=== PATIENT | male | born 1965 | race Caucasian/White ===

== ENCOUNTER 2020-03-14 12:42 | Outpatient (CLI) | payer OTHER, SELFPAY ==
--- NOTE | ~2020-03-14 | CT_ITS ---
EXAMINATION:CT chest w con DATE: 03/14/2020 13:12 INDICATION: Fibrosis of lung. TECHNIQUE: Computed tomography (CT) of the chest was performed with 75 mL Omnipaque 350 intravenous c ontrast. Automated exposure control and iterative reconstruction technique were employed. The dose-le ngth product (DLP) was 839.74 mGy-cm. COMPARISON: None. FINDINGS: The lungs demonstrate minimal atelectasis on the right. A calcified right lung nodule and c alcified right hilar lymph nodes are consistent with old granulomatous disease. No bronchiectasis or honeycombing. No pleural effusion. The heart size is normal. No pericardial effusion. There is a 4 mm stone in right kidney. There is mild bilateral gynecomastia. There is mild thoracic spondylosis. IMPRESSION: 1. No evidence of chronic interstitial lung disease. Reviewed, dictated and finalized at location A. UP SALES ADVISOR
== END 2020-03-14 12:43 | disposition home or self-care (01) ==
PROVIDERS: PCP Family Medicine; Visit Provider Family Medicine
DX: J84.10 Pulmonary fibrosis, unspecified (principal); N20.0 Calculus of kidney; N62 Hypertrophy of breast; M47.814 Spondylosis without myelopathy or radiculopathy, thoracic region
CPT/HCPCS: 71260; Q9967

== ENCOUNTER 2024-03-24 13:47 | Outpatient (CLI) | payer BC, SELFPAY ==
--- NOTE | ~2024-03-24 | XR_ITS ---
XR foot LT standing 2V Ordering provider: Kayla Lyon, PAC History: . M79.292 - Pain in left foot, NKI . Comparison: None. FINDINGS: BONES: No acute fracture or dislocation. Calcaneus spur. JOINT SPACES: Osteoarthritic changes of the first metatarsophalangeal joint.. No tarsal coalition. SOFT TISSUES: Normal. IMPRESSION: No definite acute osseous abnormality left foot. Osteoarthritic changes of the first metatarsophalangeal joint. Reviewed, dictated and finalized at location A. ICAL ASSOCIATE
== END 2024-03-24 13:48 | disposition home or self-care (01) ==
PROVIDERS: PCP Family Medicine; Visit Provider Physician Assistant Medical
DX: M19.09 Primary osteoarthritis, other specified site (principal)
CPT/HCPCS: 73620

== ENCOUNTER 2024-06-23 00:20 | Day surgery (SDC) | payer BC, SELFPAY ==
[2024-06-15 12:50] VITALS: BMI 35.5
--- OUTSIDE RECORDS SUMMARY | 2024-06-23 00:22 | XMS_ITS | Clinical Summary ---
Author Organization [facility] Address [facility] [place] [address] Care Team Providers Care Hog Raiser Name Role Phone Mahamed Lewis MD Primary Care Provider [phone] Allergies No known active allergies Medications simvastatin 20 MG tablet Take 20 mg by mouth nightly at bedtime. Active psyllium 51.7 % packet Take 1 packet by mouth daily. Active Krill Oil 500 MG Cap Take 500 mg by mouth daily. Active Multiple Vitamins-Minera ls (ONE-A-DAY MENS 50+) Tab 07/13/2018 Activ e Cholecalciferol ([facility] D3) 125 MCG (5000 UT) Cap 07/14/2019 Active Active Problems Problem Noted Date Diagnosed Date Syncope 09/21/2019 Family History Medical History Relation Comments Diabetes Maternal Grandfather Diabetes Maternal Grandmother Diabetes Paternal Grandmother Relation Status Comments Maternal Grandfather Maternal Grandmother Paternal Grandmother Social History Tobacco Use Types Packs/Day Years Used Date Smoking Tobacco: Never Smokeless Tobacco: Never Tobacco Cessation:Counseling Given: No Alcohol Use Standard Drinks/Week Comments Not Currently 0 (1 standard drink = 0.6 oz pur e alcohol) occasional drinker Humiliation, Afraid, Rape, and Kick questionnair e Answer Date Recorded Fear of Current or Ex-Partner Patient declined 0 09/22/2019 Emotionally Abused Patient declined 09/22/2019 Physically Abused Patient declined 09/22/2019 Sexually Abused Patient declined 09/22/2019 Social Connection and Isolation Panel [NHANES] A nswer Date Recorded Frequency of Communication with Friends and Fami ly Not on file 09/22/2019 Frequency of Social Gatherings with Friends and Family Patient declined 09/22/2019 Attends Jewish Services Patient declined 09/12 Active Member of Clubs or Organizations Patient declined 09/22/2019 Attends Club or Organization Meetings Patient de clined 09/22/2019 Marital Status Patient declined 09/22/2019 AUDIT-C Answer Date Recorded Frequency of Alcohol Consumption Never 09/21/2019 Average Number of Drinks Not on file 020 Frequency of Binge Drinking Not on file 12/2019 Overall Financial Resource Strain (CARDIA) Answe r Date Recorded Difficulty of Paying Living Expenses Patient dec lined 09/22/2019 PHQ-2 Answer Date Recorded PHQ-2 Score - If the patient scores above 3, please move on to questions 3-9 0 07/16/2021 [facility] [place] [facility] - Occupational Stress Questionnaire Answer Date Recorded Feeling of Stress Patient declined 09/22/2019 Exercise Vital Sign Answer Date Recorde d Days of Exercise per Week Patient declined 09/21 Minutes of Exercise per Session Patient declined 09/22/2019 Hunger Vital Sign Answer Date Recorded Worried About Running Out of Food in the Last Ye ar Patient declined 09/22/2019 Ran Out of Food in the Last Year Patient decline d 09/22/2019 PRAPARE - Transportation Answer Date Re corded Lack of Transportation (Medical) Patient decline d 09/22/2019 Lack of Transportation (Non-Medical) Patient dec lined 09/22/2019 Sex and Gender Information Value Date Recorded Sex Assigned at Male 09/22/2019 12:12 AM CDT Legal Sex Male 4:25 PM CDT Gender Identity Male 07/13/2021 9:09 AM CDT Sexual Orientation Straight 07/13/2021 9: 09 AM CDT Last Filed Vital Signs Vital Sign Reading Time Taken Comments Blood Pressure 124/75 07/16/2021 1:37 PM CDT Pulse 77 07/16/2021 1:37 PM CDT Temperature 37.1 C (98.7 F) 07/09/2021 8:05 PM CDT Respiratory Rate 20 07/09/2021 8:05 PM CDT Oxygen Saturation 98% 07/09/2021 8:05 PM CDT Inhaled Oxygen Concentration - - Weight 140.4 kg (309 lb 9.6 oz) 07/16/2021 1:37 PM CDT Height 195.6 cm (6' 5 ) 07/16/2021 1:37 PM CDT Body Mass Index 36.71 07/16/2021 1:37 PM CDT Plan of Treatment Health Maintenance Due Date Last Done Comments Colorectal Cancer Screening Colonoscopy (10 Years) 1963 Annual Physical 09/18/1966 Hepatitis C 09/18/1981 DTaP, Tdap and Td Vaccines ( 1 - Tdap) 09/18/1982 Zoster Vaccines (1 of 2) 09/18/2013 COVID-19 Vaccine (1 - 2023-2 5 season) 2023 Influenza Adult (#1) 2024 RSV Immunization or 60+ Years (1 - 1-dose 75+ series) 09/18/2038 Meningococcal B Vaccine Aged Out No l onger eligible based on patient's age to complete this topic Meningococcal Vaccine Aged Out No nely bettina eligible based on patient's age to complete this topic Pneumococcal Vaccine: Pediat rics (0 to 5 Years) and At-Risk Patients (6 to 64 Years) Aged Out No longer eligible b ased on patient's age to complete this topic RSV Immunizations Under 20 Months Aged Out No longer eligible based on patient's age to complete this topic Goals Goal Patient Goal Type Associated Problems Recent Progress Patient-Stated? Author Return to independent living with General No Izabela Giuliana Solomon, [employer] Insurance [employer] Care Teams Hog Raiser Relationship Specialty Start Date End Date Mahamed Lewis MD [address] [address] PCP - General FAMILY PRACTICE 10/29/18
[2024-06-23 07:32] VITALS: BP 134/99; PULSE 70; RESP 18; TEMP 36.1; O2SAT 98; BMI 35.9
[2024-06-23] MEDS: LACTATED RINGERS 1,000 ML 150 ML IV CONT (07:39)
--- NOTE | 2024-06-23 07:43 | WPDANESEPPF ---
Anes - Initial Pre Proc Eval Procedure: Operation Date: 06/23/24 09:00 Proposed Procedures p Screening Colonoscopy - Wood Michaels MD Date/Time: 06/23/24 07:43 Surgeon: Wood Michaels MD Pre Op Diagnosis: screening colon Patient Data Age: 58 Gender: M Height: 1.96 m Weight: 137.5 kg Last Vital Signs Temp 36.1 C L 06/23/24 07:32 Pulse 70 06/23/24 07:32 Resp 18 06/23/24 07:32 BP 134/99 H 06/23/24 07:32 Pulse Ox 98 06/23/24 07:32 O2 Del Method Room Air 06/23/24 07:32 Allergies Allergy/AdvReac Type Severity Reaction Status Date / Time midazolam Allergy Unknown Unknown Verified 06/23/24 07:30 Home Medications ?Medication ?Instructions ?Recorded ?Confirmed ?Type cholecalciferol (vitamin D3) 125 125 mcg PO DAILY 03/30/20 06/23/24 History mcg (5,000 unit) capsule krill oil 500 mg capsule 500 mg PO DAILY 03/30/20 06/23/24 History multivitamin (Daily Multi-Vitamin 1 tablet PO DAILY 03/30/20 06/23/24 History tablet) simvastatin 20 mg tablet 20 mg PO DAILY #90 tabs 04/19/24 06/23/24 Rx psyllium husk 0.4 gram capsule 0.4 g PO DAILY 06/15/24 06/23/24 History (Fiber (psyllium husk)) Patient hx anesthesia problems: none Family hx anesthesia problems: none Results Review: All pre-operative results and documents have been reviewed as part of the pre-operative evaluation. [facility] Past Medical History Medical History (Updated 06/23/24 @ 07:44 by Magdy Fuller MD) Pre-diabetes CAM[place]LE on CPAP BMI 35.0-35.9,adult Hemoglobin A1c less than 7.0% 02/10/2020 A1c= 5.6 Elevated glucose Surgical History Surgical History History of carpal tunnel surgery Dr. Leonard Family History Family History Mother Hypertension Grandparent Family history of coronary artery disease Diabetes mellitus Father No problems noted. Sibling No problems noted. Social History Social History Smoking status: Never smoker Second hand tobacco smoke exposure: No Alcohol intake: current Drinks per week: 1 Substance use: never Substance use type: does not use Living arrangements: with family Occupation/Education: occupation Additional occupation/education comments: [employer] Gender identity (if verbalized by the patient): Male Spiritual care concerns: No Anes - Eval Final PreProcedure Day of Procedure 06/23/24 07:43 Patient weight: obese Heart: regular rate and rhythm Lungs: clear to auscultation Airway: Mallampati scale class III Neurological: alert and oriented Last oral intake: >/= 8 hours ASA classification: III Emergent: no Anesthetic plan: proceed Anesthesia type and monitoring: general GIVS and standard monitoring Results Review: All pre-operative results and documents have been reviewed as part of the pre-operative evaluation. Informed Consent: The patient's anesthetic plan and its attendant risks and benefits were discussed with the patient/family/POA. Questions were solicited and answers provided to the satisfaction of the patient/family/POA.
--- NOTE | 2024-06-23 08:39 | PM.HPGS ---
History of Present Illness History of Present Illness Consent: Risks, benefits, and alternatives have been discussed and questions answered. Patient agrees to proceed with procedure. Chief complaint: screening colon Narrative: Sean Alexis is a 58 year old male with colon polyp in 2018 Review of Systems Review of Systems: All systems reviewed & are unremarkable except as noted in HPI and below PMFSH Past Medical History Medical History (Updated 06/23/24 @ 08:39 by Wood Michaels MD) Colon polyp Pre-diabetes CAMILLE on CPAP BMI 35.0-35.9,adult Hemoglobin A1c less than 7.0% 02/10/2020 A1c= 5.6 Elevated glucose Surgical History Surgical History History of carpal tunnel surgery Dr. Leonard Family History Family History Mother Hypertension Grandparent Family history of coronary artery disease Diabetes mellitus Father No problems noted. Sibling No problems noted. Social History Social History Smoking status: Never smoker Second hand tobacco smoke exposure: No Alcohol intake: current Drinks per week: 1 Substance use: never Substance use type: does not use Living arrangements: with family Occupation/Education: occupation Additional occupation/education comments: [employer] Gender identity (if verbalized by the patient): Male Spiritual care concerns: No Meds Home Medications and Allergies Home Medications ?Medication ?Instructions ?Recorded ?Confirmed ?Type cholecalciferol (vitamin D3) 125 125 mcg PO DAILY 03/30/20 06/23/24 History mcg (5,000 unit) capsule krill oil 500 mg capsule 500 mg PO DAILY 03/30/20 06/23/24 History multivitamin (Daily Multi-Vitamin 1 tablet PO DAILY 03/30/20 06/23/24 History tablet) simvastatin 20 mg tablet 20 mg PO DAILY #90 tabs 04/19/24 06/23/24 Rx psyllium husk 0.4 gram capsule 0.4 g PO DAILY 06/15/24 06/23/24 History (Fiber (psyllium husk)) Allergies Allergy/AdvReac Type Severity Reaction Status Date / Time midazolam Allergy Unknown Unknown Verified 06/23/24 07:30 Vital Signs Vital Signs - 24 hr 06/23/24 07:32 Temperature 97 F L Pulse Rate 70 Respiratory Rate 18 Blood Pressure 134/99 H Pulse Oximetry 98 Oxygen Delivery Room Air Exam Const: General: comfortable and no acute distress HENMT: Face/Nose/Sinus: Normal nares present Eyes: General: appearance normal, both eyes and all related structures Neck: Neck: no JVD Resp: Auscultation: clear to auscultation bilaterally Cardio: Rate: regular rate Rhythm: regular rhythm GI: Inspection: non-distended GI Palp: Yes Soft to palpation Skin: General skin exam: normal color Neuro: Speech: normal speech Extrem: General: normal to inspection Psych: Mental Status: mental status grossly normal Assessment and Plan Assessment and plan (1) Colon polyp: Code(s): K63.5 - Polyp of colon Status: Acute Assessment and Plan: colonoscopy
[2024-06-23 08:58] VITALS: BP 112/82; PULSE 102; RESP 18; O2SAT 98
[2024-06-23 09:08] VITALS: BP 131/87; PULSE 62; RESP 19; O2SAT 99
[2024-06-23 09:18] VITALS: BP 131/87; PULSE 57; RESP 19; O2SAT 100
== END 2024-06-23 09:25 | disposition home or self-care (01) ==
PROVIDERS: PCP Family Medicine; Referring Provider Physician Assistant Medical; Visit Provider Internal Medicine Gastroenterology
PROC: 0DJD8ZZ Inspection of Lower Intestinal Tract, Via Natural or Artificial Opening Endoscopic (ICD-10-PCS; CPT 45378; principal; 2024-06-23 09:00)
DX: Z12.11 Encounter for screening for malignant neoplasm of colon (principal); D12.3 Benign neoplasm of transverse colon; K63.5 Polyp of colon; R73.03 Prediabetes; G47.33 Obstructive sleep apnea (adult) (pediatric); E66.9 Obesity, unspecified; Z68.35 Body mass index [BMI] 35.0-35.9, adult; Z99.89 Dependence on other enabling machines and devices; Z98.890 Other specified postprocedural states; Z82.49 Family history of ischemic heart disease and other diseases of the circulatory system
CPT/HCPCS: 45380; 45385; 88305; J2003; J2704; J7120